=== PATIENT | female | born 1960 | race Caucasian/White ===

== ENCOUNTER 2018-02-27 20:59 | Emergency (ER) | payer OTHER ==
[2018-02-27 21:06] VITALS: TEMP 97.9
[2018-02-27] MEDS ORDERED: SODIUM CHLORIDE 0.9% 1,000 ML IV STA (21:43)
[2018-02-27] MEDS ORDERED: ONDANSETRON 4 MG/2 ML VIAL IVP STA (21:43)
[2018-02-27] MEDS ORDERED: FAMOTIDINE 20 MG/2 ML VIAL IV STA (21:43)
--- NOTE | 2018-02-27 21:45 | ED ---
General Adult HPI - General Chief complaint: Nausea/Vomiting/Diarrhea Stated complaint: Dizziness Time Seen by Provider: 02/27/18 21:37 Source: patient, family, RN notes reviewed Mode of arrival: ambulatory Limitations: no limitations - History of Present Illness Initial comments: Patient is a pleasant 58-year-old female presenting to the emergency Department with complaints of nausea. Symptoms have been present for close to a week. Patient has had decreased appetite. No vomiting. Patient feels lightheaded. Patient does have some discomfort in the epigastric region. Patient has been belching some. Patient did have one episode of diarrhea at onset however none since then. No constipation. No fevers. Discomfort is mild. - Related Data Previous Rx's Medication Instructions Recorded Omeprazole [PriLOSEC] 20 mg PO AC-BID #60 cap 02/27/18 Allergies Allergy/AdvReac Type Severity Reaction Status Date / Time No Known Allergies Allergy Verified 02/27/18 21:39 Review of Systems ROS Statement: Those systems with pertinent positive or pertinent negative responses have been documented in the HPI. ROS Other: All systems not noted in ROS Statement are negative. Constitutional: Denies: fever Eyes: Denies: eye pain ENT: Denies: ear pain Respiratory: Denies: cough Cardiovascular: Denies: chest pain Endocrine: Reports: fatigue Gastrointestinal: Reports: abdominal pain, nausea. Denies: vomiting Genitourinary: Denies: dysuria Musculoskeletal: Denies: back pain Skin: Denies: rash Neurological: Denies: weakness Past Medical History Past Medical History: No Reported History History of Any Multi-Drug Resistant Organisms: None Reported Past Surgical History: Hysterectomy Additional Past Surgical History / Comment(s): breast augmentation. Past Psychological History: No Psychological Hx Reported Smoking Status: Former smoker Past Alcohol Use History: None Reported Past Drug Use History: None Reported General Exam Limitations: no limitations General appearance: alert, in no apparent distress Head exam: Present: atraumatic Eye exam: Present: normal appearance, PERRL ENT exam: Present: normal oropharynx Neck exam: Present: normal inspection Respiratory exam: Present: normal lung sounds bilaterally Cardiovascular Exam: Present: regular rate, normal rhythm Expanded Peripheral pulses: 2+: Radial (R), Radial (L), Posterior Tibialis (R), Posterior Tibialis (L) GI/Abdominal exam: Present: soft, normal bowel sounds. Absent: distended, tenderness, guarding, rebound, rigid, pulsatile mass Extremities exam: Present: normal inspection. Absent: pedal edema, calf tenderness Neurological exam: Present: alert Psychiatric exam: Present: normal affect, normal mood Skin exam: Present: normal color Course Vital Signs 02/27/18 02/27/18 21:02 22:41 Temperature 97.9 F 97.9 F Pulse Rate 78 75 Respiratory 16 18 Rate Blood Pressure 142/87 147/70 O2 Sat by Pulse 98 100 Oximetry Medical Decision Making - Medical Decision Making Patient reevaluated and does feel much better. Patient family are updated on results and need for follow-up. Patient states her takes Prilosec and would like to take that. - Lab Data Result diagrams: 02/27/18 21:55 02/27/18 21:55 Lab Results 02/27/18 02/27/18 02/27/18 Range/Units 21:55 21:55 21:55 WBC 3.9 (3.8-10.6) k/uL RBC 5.03 (3.80-5.40) m/uL Hgb 14.6 (11.4-16.0) gm/dL Hct 43.8 (34.0-46.0) % MCV 86.9 (80.0-100.0) fL MCH 29.1 (25.0-35.0) pg MCHC 33.5 (31.0-37.0) g/dL RDW 12.3 (11.5-15.5) % Plt Count 247 (150-450) k/uL Neutrophils % (Manual) 40 % Lymphocytes % (Manual) 46 % Monocytes % (Manual) 11 % Eosinophils % (Manual) 2 % Basophils % (Manual) 1 % Neutrophils # (Manual) 1.56 (1.3-7.7) k/uL Lymphocytes # (Manual) 1.79 (1.0-4.8) k/uL Monocytes # (Manual) 0.43 (0-1.0) k/uL Eosinophils # (Manual) 0.08 (0-0.7) k/uL Basophils # (Manual) 0.04 (0-0.2) k/uL Nucleated RBCs 0 (0-0) /100 WBC Manual Slide Review Performed Sodium 143 (137-145) mmol/L Potassium 3.8 (3.5-5.1) mmol/L Chloride 103 (98-107) mmol/L Carbon Dioxide 27 (22-30) mmol/L Anion Gap 13 mmol/L BUN 17 (7-17) mg/dL Creatinine 0.90 (0.52-1.04) mg/dL Est GFR (CKD-EPI)AfAm 81 (>60 ml/min/1.73 sqM) Est GFR (CKD-EPI)NonAf 70 (>60 ml/min/1.73 sqM) Glucose 89 (74-99) mg/dL Calcium 9.6 (8.4-10.2) mg/dL Total Bilirubin 0.2 (0.2-1.3) mg/dL AST 29 (14-36) U/L ALT 34 (9-52) U/L Alkaline Phosphatase 80 (38-126) U/L Total Protein 7.1 (6.3-8.2) g/dL Albumin 4.5 (3.5-5.0) g/dL Amylase 37 (30-110) U/L Lipase 129 (23-300) U/L Urine Color Yellow Urine Appearance Clear (Clear) Urine pH 7.0 (5.0-8.0) Ur Specific [place] 1.013 (1.001-1.035) Urine Protein Negative (Negative) Urine Glucose (UA) Negative (Negative) Urine Ketones 1+ H (Negative) Urine Blood Negative (Negative) Urine Nitrite Negative (Negative) Urine Bilirubin Negative (Negative) Urine Urobilinogen <2.0 (<2.0) mg/dL Ur Leukocyte Esterase Negative (Negative) - Radiology Data Radiology results: image reviewed (Abdominal x-ray shows nonacute abdomen) Disposition Clinical Impression: Nausea Disposition: HOME SELF-CARE Condition: Stable Instructions: Acute Nausea and Vomiting (ED), Gastritis (ED) Additional Instructions: Please follow-up with primary care physician in the next couple of days for recheck. Continue with Prilosec or similar medication for the next one to 2 weeks. If symptoms continue consider upper endoscopy: EGD, or barium swallow. Return for increased pain, fevers, uncontrolled vomiting, worsening or changing symptoms or other concerns. Prescriptions: Omeprazole [PriLOSEC] 20 mg PO AC-BID #60 cap Is patient prescribed a controlled substance at d/c from ED?: No Referrals: Rocio Melendez MD [STAFF PHYSICIAN] - 1-2 days Zaria Brooks MD [STAFF PHYSICIAN] - 1-2 days Time of Disposition: 23:26
[2018-02-27 22:05] LABS: Appearance,Urine Clear (Clear); Bilirubin,Urine Negative (Negative); Blood,Urine Negative (Negative); Color,Urine Yellow; Glucose,Urine (UA) Negative (Negative); HCT 43.8 % (34.0-46.0); HGB 14.6 gm/dL (11.4-16.0); Ketones,Urine 1+ (Negative); Leukocyte Esterase,Urine Negative (Negative); MCH 29.1 pg (25.0-35.0); MCHC 33.5 g/dL (31.0-37.0); MCV 86.9 fL (80.0-100.0); Mean Platelet Volume 7.1; Nitrite,Urine Negative (Negative); Platelet Count 247 k/uL (150-450); Protein,Urine Negative (Negative); RBC 5.03 m/uL (3.80-5.40); RDW 12.3 % (11.5-15.5); Specific Gravity,Urine 1.013 (1.001-1.035); Urobilinogen,Urine <2.0 mg/dL (<2.0); WBC 3.9 k/uL (3.8-10.6)
[2018-02-27 22:14] LABS: Albumin 4.5 g/dL (3.5-5.0); Calcium 9.6 mg/dL (8.4-10.2); Potassium 3.8 mmol/L (3.5-5.1); Total Bilirubin 0.2 mg/dL (0.2-1.3); Total Protein 7.1 g/dL (6.3-8.2)
--- NOTE | 2018-02-27 22:27 | XR ---
EXAMINATION TYPE: XR KUB DATE OF EXAM: 02/27/2018 COMPARISON: NONE HISTORY: Nausea and pain TECHNIQUE: 2 views FINDINGS: There is no sign of intestinal obstruction or pneumoperitoneum. Fecal pattern is normal. Elsy ng bases are clear. There are no pathologic calcifications over the kidneys. There is no evidence of a mass. IMPRESSION: Nonacute abdomen.
[2018-02-27 22:42] VITALS: BP 147/70; PULSE 75; RESP 18
[2018-02-27 22:43] LABS: Basophils # (M) 0.04 k/uL (0-0.2); Eosinophils # (M) 0.08 k/uL (0-0.7); Lymphocytes # (M) 1.79 k/uL (1.0-4.8); Monocytes # (M) 0.43 k/uL (0-1.0); Neutrophils # (M) 1.56 k/uL (1.3-7.7); Neutrophils % (M) 40 %; Nucleated Red Blood Cells 0 /100 WBC (0-0); Total Cells Counted 100
== END 2018-02-27 23:32 | disposition home or self-care (01) ==
LOC: EC 20:59
DX: R11.0 Nausea (principal); R42 Dizziness and giddiness; R14.2 Eructation; R19.7 Diarrhea, unspecified; Z87.891 Personal history of nicotine dependence
CPT/HCPCS: 36415; 80053; 82150; 83690; 85025; 81003; 74018; 99284; 96374; 96375; 96361 ×2; J2405

== ENCOUNTER 2018-03-27 07:28 | Day surgery (SDC) | payer SELFPAY ==
[2018-03-23 15:30] VITALS: BMI 25.0
[~2018-03-27 07:28] MED LIST: DEXAMETHASONE SOD PHOSPHATE 10 MG/ML 1 ML VIAL IV ONE; HEPARIN SODIUM,PORCINE 5,000 UNIT/ML 1 ML VIAL SQ ONE; LACTATED RINGERS 1,000 ML IV SCH; LIDOCAINE 1% 20 ML VIAL (10MG/ML) FOR IV START INTRADERMA PRN; MIDAZOLAM 2 MG/2 ML VIAL IV PRN; ONDANSETRON 4 MG/2 ML VIAL IVP ONE; SCOPOLAMINE 1.5MG/72HR PATCH TRANSDERM ONE; ceFAZolin IN SWFI 2 GM/20 ML SYRINGE IVP ONE
--- NOTE | 2018-03-27 09:17 | P.GSHP ---
History of Present Illness H&P Date: 03/27/18 Chief Complaint: Right upper quadrant pain Is a 58-year-old female who's had complaints of right upper quadrant pain. Patient presents today for laparoscopic cholecystectomy.. She's had a HIDA scan performed which showed a diminished ejection fraction. Consistent with chronic cholecystitis and biliary dyskinesia. Past Medical History Past Medical History: No Reported History, Osteoarthritis (OA) History of Any Multi-Drug Resistant Organisms: None Reported Past Surgical History: Hysterectomy Additional Past Surgical History / Comment(s): Breast Augmentation. Laparoscopy. Past Anesthesia/Blood Transfusion Reactions: No Reported Reaction Smoking Status: Former smoker - Past Family History Brother(s) Family Medical History: Cancer Additional Family Medical History / Comment(s): Stomach CA Medications and Allergies Home Medications Medication Instructions Recorded Confirmed Type No Known Home Medications 03/23/18 03/27/18 History Allergies Allergy/AdvReac Type Severity Reaction Status Date / Time No Known Allergies Allergy Verified 03/27/18 07:47 Surgical - Exam Vital Signs Temp Pulse Resp BP Pulse Ox 97.9 F 77 16 128/82 99 03/27/18 07:51 03/27/18 07:51 03/27/18 07:51 03/27/18 07:51 03/27/18 07:51 - General well developed, well nourished, no distress - Eyes PERRL - ENT normal pinna - Neck no masses - Respiratory normal expansion - Cardiovascular Rhythm: regular - Abdomen Abdomen: soft, non tender Assessment and Plan Assessment: Chronic cholecystitis. We'll perform laparoscopic cholecystectomy.
[2018-03-27] MEDS ORDERED: NEOSTIGMINE 1 MG/ML 10 ML VIAL ONE (09:35)
[2018-03-27] MEDS ORDERED: GLYCOPYRROLATE 0.2 MG/ML 2 ML VIAL ONE (09:35)
[2018-03-27] MEDS ORDERED: KETOROLAC 30 MG/ML 1 ML VIAL ONE (09:35)
[2018-03-27] MEDS ORDERED: MIDAZOLAM 2 MG/2 ML VIAL ONE (09:35)
[2018-03-27] MEDS ORDERED: fentaNYL (PF) 50 MCG/ML 2 ML AMP ONE (09:35)
[2018-03-27] MEDS ORDERED: ROCURONIUM BROMIDE 10 MG/ML 10 ML VIAL IV ONE (09:35)
[2018-03-27] MEDS ORDERED: LIDOCAINE 1% INJ 10MG/ML (20 ML MDV) ONE (09:35)
[2018-03-27] MEDS ORDERED: PROPOFOL 10 MG/ML 20 ML VIAL IV ONE (09:35)
[2018-03-27] MEDS ORDERED: SUCCINYLCHOLINE CHLORIDE 100 MG/5 ML SYR IV ONE (09:35)
[2018-03-27] MEDS ORDERED: BUPIVACAINE (PF) 0.5% 30 ML VIAL SQ ONE ×2 (09:49→10:01)
[2018-03-27] MEDS: HYDROmorphone 0.5 MG/0.5 ML SYRINGE IVP PRN ×4 (10:36→11:01)
[2018-03-27 10:37] VITALS: TEMP 96.9
--- NOTE | 2018-03-27 10:38 | P.OP ---
Date of Procedure: 03/27/18 Preoperative Diagnosis: Cholecystitis Postoperative Diagnosis: Cholecystitis Procedure(s) Performed: Laparoscopic cholecystectomy Anesthesia: JYOTI Surgeon: John Castaneda Estimated Blood Loss (ml): 5 Pathology: other (gAll bladder) Condition: stable Disposition: PACU Description of Procedure: The patient was placed on the operating table. The patient received a general endotracheal tube anesthesia. The patients abdomen was prepped and draped in the usual sterile fashion. Through an infraumbilical stab incision, the fascia of the anterior abdominal wall was grasped with a pair of Kochers and then the Veress needle was placed in the peritoneal cavity. Position of the Veress needle was confirmed with positive drop test. The abdomen was then insufflated. After adequate insufflation, the I've mm trocar was placed in the peritoneal cavity. Following this the laparoscope was placed in the peritoneal cavity. There were adhesions noted around the trocar. The patient was placed in the head-up, right side up position and then a 5 mm trocar optical trocar was placed in the right lateral position under direct visualization. The laparoscope was placed in this trocar site. The adhesions around the umbilical trocar site was seen. The trocar was then maneuvered through the adhesions. There was no injury seen to the small bowel. A 5 mm trocar was then placed in the right subcostal position under direct visualization. A 8 mm trocar was placed in the epigastric position. The gallbladder was grasped in the fundus and infundibulum. Traction on the gallbladder was placed in the lateral and the cephalad positions. The triangle of Calot was visualized.. The cystic duct was bluntly dissected until the union of the cystic duct and common bile duct was seen. The cystic duct was then divided and sealed with the Harmonic scissors. A PDS Endoloop was then placed throughout the cystic duct stump. The cystic artery divided and sealed with the Harmonic scissors. The gallbladder was then removed from the liver bed using Harmonic scissors. The gallbladder was then extracted through the epigastric port site. Operative field was checked for any bleeding spots and Harmonic scissors was used to coagulate the liver bed. The abdomen was irrigated. The trocars were removed. The skin was closed using interrupted 3- 0 Vicryl suture. Dermabond dressing were applied. The patient tolerated the procedure well.
[2018-03-27] MEDS ORDERED: LACTATED RINGERS 1,000 ML IV ONE (10:57)
[2018-03-27] MEDS: LACTATED RINGERS 1,000 ML IV ONE ×2 (10:57→13:14)
[2018-03-27] MEDS ORDERED: HYDROcodone/APAP 7.5-325MG 1 EACH TAB PO ONE (13:10)
[2018-03-27 14:07] VITALS: BP 133/85; PULSE 73; RESP 16
== END 2018-03-27 14:33 | disposition home or self-care (01) ==
LOC: OR 07:28
PROVIDERS: ATTEND Surgery
DX: K80.10 Calculus of gallbladder with chronic cholecystitis without obstruction (principal); K66.0 Peritoneal adhesions (postprocedural) (postinfection); M19.90 Unspecified osteoarthritis, unspecified site; Z87.891 Personal history of nicotine dependence
CPT/HCPCS: 88304; 47562; J2250; J1644; J1100; J2710; J2405; J2001; J3010; J1885; J0330; J2704; J1170; J0690

== ENCOUNTER → 2018-09-18 | Outpatient (CLI) | payer SELFPAY ==
--- NOTE | 2018-09-18 13:55 | CT ---
EXAMINATION TYPE: CT abdomen pelvis w con DATE OF EXAM: 09/18/2018 HISTORY: Diverticulitis x [address] DLP: 1044mGycm Automated Exposure Control for Dose Reduction was Utilized. CONTRAST: CT scan of the abdomen and pelvis is performed with oral and with IV Contrast, patient injected with 100 mL of Isovue M300. COMPARISON: Abdominal x-ray February 27, 2018 FINDINGS: LUNG BASES: There is partial visualization of bilateral breast implants. Slightly elevated right dio diaphragm is noted. LIVER/GB: Gallbladder is surgically absent. Suspect surgical clip though it is somewhat more rounded in appearance axial image 19,it is slightly more oval in shape on coronal image 23. Cannot exclude re mnant cystic duct stone. Correlation needs to be made with surgical note at time of operation. No henry iary dilatation is noted. PANCREAS: No significant abnormality is seen. SPLEEN: Few tiny calcifications throughout the spleen are present product of old granulomatous diseas e. ADRENALS: No significant abnormality is seen. KIDNEYS: No significant abnormality is seen. BOWEL: The oral contrast reaches level of left colon making evaluation of distal bowel suboptimal. Th ere is no suspicious small or large bowel dilatation. There are prominent diverticula in the sigmoid colon with moderate wall thickening felt present mid to distal aspect left pelvis coronal image 60. T here is perhaps mild residual fat stranding or fluid near this level. No well-formed fluid collection or abscess is seen. No pneumoperitoneum is noted. UTERUS/ADNEXA: Uterus is surgically absent or less likely markedly atrophic. LYMPH NODES: No greater than 1cm abdominal or pelvic lymph nodes are appreciated. OSSEOUS STRUCTURES: No significant abnormality is seen. OTHER: No significant additional abnormality is seen. IMPRESSION: Suboptimal study. Prominent sigmoid colonic diverticulosis with suggestion of mild residu al acute diverticulitis in the mid to distal sigmoid colon in the left pelvis. Follow-up colonoscopy advised to rule out neoplasm if has not been performed the last 3 years after completion of medical t reatment.
== END ==
LOC: RADCTMAIN 10:00
PROVIDERS: ATTEND Surgery
DX: K57.30 Diverticulosis of large intestine without perforation or abscess without bleeding (principal)
CPT/HCPCS: 74177; Q9967

== ENCOUNTER 2018-10-07 09:40 | Day surgery (SDC) | payer SELFPAY ==
[2018-10-05 11:35] VITALS: BMI 23.8
[~2018-10-07 09:40] MED LIST changes: -DEXAMETHASONE SOD PHOSPHATE 10 MG/ML 1 ML VIAL IV ONE; -HEPARIN SODIUM,PORCINE 5,000 UNIT/ML 1 ML VIAL SQ ONE; -MIDAZOLAM 2 MG/2 ML VIAL IV PRN; -ONDANSETRON 4 MG/2 ML VIAL IVP ONE; -SCOPOLAMINE 1.5MG/72HR PATCH TRANSDERM ONE; -ceFAZolin IN SWFI 2 GM/20 ML SYRINGE IVP ONE
[2018-10-07 10:06] VITALS: RESP 16; TEMP 97.9
[2018-10-07] MEDS ORDERED: PROPOFOL 10 MG/ML 20 ML VIAL IV ONE (10:28)
--- NOTE | 2018-10-07 10:33 | P.GSHP ---
History of Present Illness H&P Date: 10/07/18 Chief Complaint: GERD, diverticulitis This a 4-year-old female who's had complaints of GERD and diverticulitis. Patient rents today for EGD and colonoscopy. Past Medical History Past Medical History: GERD/Reflux, Syncope Additional Past Medical History / Comment(s): recent bout of diverticulitis- just finished antibiotics, lots of belching, osteoporosis, had episode of fainting Dec. 12th-saw PCP-not sure what happened History of Any Multi-Drug Resistant Organisms: None Reported Past Surgical History: Cholecystectomy, Hysterectomy Additional Past Surgical History / Comment(s): Breast Augmentation, Laparoscopy. Past Anesthesia/Blood Transfusion Reactions: No Reported Reaction Smoking Status: Former smoker - Past Family History Brother(s) Family Medical History: Cancer Additional Family Medical History / Comment(s): Stomach CA Medications and Allergies Home Medications Medication Instructions Recorded Confirmed Type No Known Home Medications 10/05/18 10/07/18 History Allergies Allergy/AdvReac Type Severity Reaction Status Date / Time No Known Allergies Allergy Verified 10/07/18 10:06 Surgical - Exam Vital Signs Temp Pulse Resp BP Pulse Ox 97.9 F 80 16 138/80 98 10/07/18 10:05 10/07/18 10:05 10/07/18 10:05 10/07/18 10:05 10/07/18 10:05 - General well developed, no distress - Eyes PERRL - ENT normal pinna - Neck no masses - Respiratory normal expansion - Cardiovascular Rhythm: regular - Abdomen Abdomen: soft, non tender Assessment and Plan Assessment: GERD, diarrhea. We'll perform EGD and colonoscopy.
--- NOTE | 2018-10-07 10:51 | P.OP ---
Date of Procedure: 10/07/18 Preoperative Diagnosis: GERD Diverticulitis Postoperative Diagnosis: Antral gastritis Esophagitis Diverticulosis Tortuous colon Procedure(s) Performed: EGD Colonoscopy Anesthesia: JYOTI Surgeon: John Castaneda Pathology: other (Antrum, esophagus) Condition: stable Disposition: PACU Description of Procedure: The patient's placed on the endoscopy table in the lateral position. She received IV sedation. The gastroscope placed oropharynx passed in the esophagus and into the stomach. Scope was then placed through the pylorus. The first and second portion of the duodenum appeared normal. Scope was then brought back the antrum this was mildly inflamed. A biopsies performed. The scope was unretroflexed and remainder of the stomach appeared normal. There was a minimal hiatal hernia. The GE junction was at 40 cm. The distal esophagus appeared minimally inflamed a biopsies performed. The proximal esophagus appeared normal. The scope was withdrawn for patient. Next, digital rectal exam was performed. This revealed no endovascular the flexible colonoscope was then placed patient anus passed with colon.; Was quite tortuous. There is significantly diverticular changes. Scope could not be passed beyond the left colon secondary to tortuous valve. This point scope was withdrawn. Extensive diverticulosis was seen. Scope was then brought back the rectum this appeared normal. Scope was withdrawn for patient. The patient was scheduled for a barium enema.
[2018-10-07 11:45] VITALS: BP 107/71; PULSE 79
--- NOTE | 2018-10-07 15:35 | FL ---
EXAMINATION TYPE: FL barium enema DATE OF EXAM: 10/07/2018 COMPARISON: CT abdomen and pelvis September 18, 2018 HISTORY: Incomplete colonoscopy. Severe abdominal pain for 7 weeks. TECHNIQUE: A double contrast barium enema study is performed. A total of 1 minute 57 seconds of fluo roscopic time was utilized during procedure. 18 overhead and spot images are acquired. FINDINGS: Binder Cutter view of the abdomen shows overall non-obstructive bowel gas pattern. Gas prominence from cecum to rectum is noted. Enema study is performed. There is successful filling of the cecum. Some redundancy into the colon an d retrograde filling of terminal ileum makes evaluation slightly suboptimal. There are some diverticu la in the sigmoid colon. No CT evidence for acute diverticulitis. No obvious obstructing or constrict ing lesion or neoplasm throughout the colon. Evaluation for focal polyps is suboptimal. Cecum is low lying into right pelvis. Appendix is not distinctly identified. The terminal ileum was refluxed and appears within normal field its. IMPRESSION: Successful filling to cecum without obstructing or constricting neoplasm noted.
== END 2018-10-07 12:02 | disposition home or self-care (01) ==
LOC: ORWHC2ENDO 09:40
PROVIDERS: ATTEND Surgery
DX: K21.0 Gastro-esophageal reflux disease with esophagitis (principal); K44.9 Diaphragmatic hernia without obstruction or gangrene; Q43.8 Other specified congenital malformations of intestine; K29.50 Unspecified chronic gastritis without bleeding; K57.30 Diverticulosis of large intestine without perforation or abscess without bleeding; M81.0 Age-related osteoporosis without current pathological fracture; Z90.49 Acquired absence of other specified parts of digestive tract; Z87.19 Personal history of other diseases of the digestive system; Z87.898 Personal history of other specified conditions; Z80.0 Family history of malignant neoplasm of digestive organs
CPT/HCPCS: 88305; 74270; 43239; 45330; J2704

== ENCOUNTER → 2018-11-25 | Outpatient (CLI) | payer SELFPAY ==
[2018-11-26 06:09] LABS: Albumin 4.1 g/dL (3.80-4.90); Albumin/Globulin Ratio 2.16 (1.60-3.17); Calcium 9.5 mg/dL (8.7-10.3); Globulin 1.9 g/dL (1.6-3.3); Potassium 4.2 mmol/L (3.5-5.5); Total Bilirubin 0.3 mg/dL (0.2-1.2)
== END | disposition home or self-care (01) ==
LOC: LABWHC1 17:07
PROVIDERS: ATTEND Internal Medicine
DX: R74.8 Abnormal levels of other serum enzymes (principal)
CPT/HCPCS: 36415; 80053

== ENCOUNTER → 2019-01-06 | Outpatient (CLI) | payer SELFPAY ==
[2019-01-06 16:32] LABS: HCT 42.4 % (34.0-46.0); HGB 13.7 gm/dL (11.4-16.0); MCH 28.9 pg (25.0-35.0); MCHC 32.4 g/dL (31.0-37.0); MCV 89.1 fL (80.0-100.0); Mean Platelet Volume 7.1; Platelet Count 336 k/uL (150-450); RBC 4.76 m/uL (3.80-5.40); RDW 13.4 % (11.5-15.5); WBC 6.9 k/uL (3.8-10.6)
[2019-01-06 21:09] LABS: Erythrocyte Sedimentation Rate 13 mm/hr (0-20)
[2019-01-06 23:52] LABS: ALT 21 U/L (8-44); AST 26 U/L (13-35); Albumin/Globulin Ratio 2.14 (1.60-3.17); Alkaline Phosphatase 97 U/L (41-126); C Reactive Protein <0.4 mg/dL (0.0-0.8); Calcium 10.1 mg/dL (8.7-10.3); Carbon Dioxide 28.7 mmol/L (21.6-31.8); Chloride 102 mmol/L (96-109); Globulin 2.2 g/dL (1.6-3.3); Glucose 77 mg/dL (70-110); Sodium 141 mmol/L (135-145); Total Bilirubin 0.2 mg/dL (0.3-1.2); Total Protein 6.9 g/dL (6.2-8.2)
== END | disposition home or self-care (01) ==
LOC: LABWHC1 15:31
DX: R10.30 Lower abdominal pain, unspecified (principal); R14.0 Abdominal distension (gaseous)
CPT/HCPCS: 36415; 80053; 83516; 85027; 85652; 86140

== ENCOUNTER 2019-04-18 09:35 | Emergency (ER) | payer OTHER ==
[2019-04-18 09:55] VITALS: BP 123/77; PULSE 87; RESP 18; TEMP 97.7
[2019-04-18] MEDS ORDERED: LORATADINE 10 MG TAB PO STA (10:26)
[2019-04-18] MEDS ORDERED: methylPREDNISolone SOD SUCCI 125 MG/2 ML VIAL IM ONE (10:26)
--- NOTE | 2019-04-18 10:36 | ED ---
General Adult HPI - General Chief complaint: Skin/Abscess/Foreign Body Stated complaint: Allergic reaction, hives Time Seen by Provider: 04/18/19 10:05 Source: patient, RN notes reviewed Mode of arrival: ambulatory Limitations: no limitations - History of Present Illness Initial comments: Faiza is a 59-year-old female with a past medical history of GERD, diverticulitis, syncope the presents to the emergency department for a chief complaint of pruritus. Patient states this has been ongoing since "sprained." Patient states that it seems to be worsening. States that she has hives on her arms and legs as well as her abdomen. States that these have been consistent since spring. Patient has not followed up with her doctor for this. States she has been taking Benadryl but does not like to take this because of it making her drowsy. Patient denies any swelling of the lips tongue or throat. Denies any difficulty breathing or shortness of breath.Patient has no other complaints at this time including shortness of breath, chest pain, abdominal pain, nausea or vomiting, headache, or visual changes. - Related Data Previous Rx's Medication Instructions Recorded Loratadine [Claritin] 10 mg PO DAILY #20 tab 04/18/19 hydrOXYzine HCL [Atarax] 25 mg PO HS PRN #15 tab 04/18/19 predniSONE 50 mg PO DAILY #5 tablet 04/18/19 Allergies Allergy/AdvReac Type Severity Reaction Status Date / Time No Known Allergies Allergy Verified 04/18/19 09:51 Review of Systems ROS Statement: Those systems with pertinent positive or pertinent negative responses have been documented in the HPI. ROS Other: All systems not noted in ROS Statement are negative. Past Medical History Past Medical History: GERD/Reflux, Syncope Additional Past Medical History / Comment(s): recent bout of diverticulitis-just finished antibiotics, lots of belching, osteoporosis, had episode of fainting -saw PCP-not sure what happened History of Any Multi-Drug Resistant Organisms: None Reported Past Surgical History: Cholecystectomy, Hysterectomy Additional Past Surgical History / Comment(s): Breast Augmentation, Laparoscopy. Past Anesthesia/Blood Transfusion Reactions: No Reported Reaction Past Psychological History: No Psychological Hx Reported Smoking Status: Former smoker Past Alcohol Use History: None Reported Past Drug Use History: None Reported - Past Family History Brother(s) Family Medical History: Cancer Additional Family Medical History / Comment(s): Stomach CA General Exam Limitations: no limitations General appearance: alert, in no apparent distress Head exam: Present: atraumatic, normocephalic, normal inspection Eye exam: Present: normal appearance, PERRL, EOMI. Absent: scleral icterus, conjunctival injection, periorbital swelling ENT exam: Present: normal exam, normal oropharynx, mucous membranes moist, TM's normal bilaterally, normal external ear exam Neck exam: Present: normal inspection, full ROM. Absent: tenderness, meningismus, lymphadenopathy Respiratory exam: Present: normal lung sounds bilaterally. Absent: respiratory distress, wheezes, rales, rhonchi, stridor Cardiovascular Exam: Present: regular rate, normal rhythm, normal heart sounds. Absent: systolic murmur, diastolic murmur, rubs, gallop, clicks GI/Abdominal exam: Present: soft, normal bowel sounds. Absent: distended, tenderness, guarding, rebound, rigid Neurological exam: Present: alert, oriented X3, CN II-XII intact Psychiatric exam: Present: normal affect, normal mood Skin exam: Present: rash (Patient has plaque like erythema noted to arms, legs, and abdomen. this is noted in the AC of bilat arms, ankles , and mildly on the abdomen. small plaques noted on chest as well. No evidence of infection. No spreading redness. No purulent drainage or excoriations.) Course Vital Signs 04/18/19 09:51 Temperature 97.7 F Pulse Rate 87 Respiratory 18 Rate Blood Pressure 123/77 O2 Sat by Pulse 97 Oximetry Medical Decision Making - Medical Decision Making 59-year-old female presents for a chief complaint of rash and pruritus times months. States this seems to be getting worse. States this has happened for the past several years during the spring and summer. Patient has not followed up with primary care. States she has been intermittently taking Benadryl but does not like to take this because it causes her to be drowsy. On exam patient does have mild erythematous plaques consistent with urticaria on patient's henry ateral ACs, ankles. There are also some plaques noted on the abdomen and chest. No angioedema such as swelling of the lips tongue or throat. Patient was given a shot of steroids here in the emergency department. Offered Benadryl the patient refuses as she is driving home. Therefore patient be given Claritin and pepcid. Patient reevaluated, itching is actually improved considerably. Prescribed Atarax for nighttime use and Claritin during the day. Also prescribed course of oral steroids. Patient will follow-up with vertical lathe operator in 1-2 days. She'll return here if she has any worsening symptoms. Disposition Clinical Impression: Urticaria, Pruritus Disposition: HOME SELF-CARE Condition: Good Instructions (If sedation given, give patient instructions): Urticaria (ED) Additional Instructions: Please take steroid as directed starting tomorrow. Take Claritin once during the day. Take Atarax at night before bed. Take cool baths as hot water can make this worse. Follow up with your primary care provider as well as dermatology as soon as possible. Return to the emergency department if you have any worsening symptoms including swelling of the lips tongue or throat. Prescriptions: hydrOXYzine HCL [Atarax] 25 mg PO HS PRN #15 tab PRN Reason: Itching Loratadine [Claritin] 10 mg PO DAILY #20 tab predniSONE 50 mg PO DAILY #5 tablet Is patient prescribed a controlled substance at d/c from ED?: No Referrals: Rocio Melendez MD [Primary Care Provider] - 1-2 days Ketan Kay MD [STAFF PHYSICIAN] - 1-2 days Time of Disposition: 10:28
[2019-04-18] MEDS ORDERED: FAMOTIDINE 20 MG TAB PO STA (10:40)
== END 2019-04-18 11:13 | disposition home or self-care (01) ==
LOC: EC 09:35
DX: L50.9 Urticaria, unspecified (principal); Z53.29 Procedure and treatment not carried out because of patient's decision for other reasons; Z87.891 Personal history of nicotine dependence
CPT/HCPCS: 96372; 99283; J2930

== ENCOUNTER → 2019-10-09 | Outpatient (CLI) | payer BC ==
[2019-10-09 08:51] LABS: Basophils % (A) 1 %; Eosinophils # (A) 0.1 k/uL (0-0.7); Eosinophils % (A) 2 %; HCT 44.1 % (34.0-46.0); HGB 14.6 gm/dL (11.4-16.0); Lymphocytes # (A) 2.1 k/uL (1.0-4.8); Lymphocytes % (A) 33 %; MCH 30.2 pg (25.0-35.0); MCHC 33.1 g/dL (31.0-37.0); MCV 91.4 fL (80.0-100.0); Mean Platelet Volume 7.1; Monocytes # (A) 0.4 k/uL (0-1.0); Monocytes % (A) 7 %; Neutrophils # (A) 3.3 k/uL (1.3-7.7); Neutrophils % (A) 54 %; Platelet Count 310 k/uL (150-450); RBC 4.83 m/uL (3.80-5.40); RDW 12.4 % (11.5-15.5); WBC 6.2 k/uL (3.8-10.6)
[2019-10-09 13:42] LABS: Albumin 4.6 g/dL (3.80-4.90); Albumin/Globulin Ratio 2.3 (1.60-3.17); BUN/Creat Ratio 15.56 Ratio (12.00-20.00); Calcium 9.8 mg/dL (8.7-10.3); Chol/HDL Ratio 2.78; LDL Cholesterol,Calculated 123.6 mg/dL (0.0-131.0); Potassium 4.2 mmol/L (3.5-5.5); Total Bilirubin 0.4 mg/dL (0.3-1.2); Total Protein 6.6 g/dL (6.2-8.2); VLDL Calculation 22.4 mg/dL (5.00-40.00)
== END | disposition home or self-care (01) ==
LOC: LABWHC1 07:59
PROVIDERS: ATTEND Internal Medicine
DX: Z00.01 Encounter for general adult medical examination with abnormal findings (principal); Z13.220 Encounter for screening for lipoid disorders
CPT/HCPCS: 36415; 80053; 80061; 85025